=== PATIENT | male | born 1945 | race Caucasian/White ===

== ENCOUNTER 2023-10-19 06:59 | Inpatient (IN) | payer MEDICARE, OTHER ==
[~2023-10-19] VITALS: Ht 160 cm; Wt 73.0 kg
[2023-10-19 08:03] LABS: Urine Bacteria None Seen /hpf (None Seen); Urine WBC None Seen /hpf (0 - 3)
[2023-10-19 08:11] LABS: Basophils # (auto) 0 10 ^3/uL (0-0.2); Basophils % (auto) 0.5 % (0.0-2.0); Eosinophils # (auto) 0.2 10 ^3/uL (0-0.8); Eosinophils % (auto) 3.3 % (0.0-7.0); Hematocrit 40.4 % (41.0-53.0); Hemoglobin 13.9 g/dL (13.5-17.5); Lymphocytes # (auto) 1.2 10 ^3/uL (0.4-5.4); Lymphocytes % (auto) 22.3 % (10.0-50.0); Mean Corpuscular Hemoglobin 32.6 pg (28.0-32.0); Mean Corpuscular Hgb Conc. 34.4 g/dL (32.0-36.0); Mean Corpuscular Volume 94.9 fL (80.0-100.0); Monocytes # (auto) 0.5 10 ^3/uL (0-1.3); Monocytes % (auto) 10.1 % (0.0-12.0); Neutrophils # (auto) 3.5 10 ^3/uL (1.6-8.6); Neutrophils % (auto) 63.8 % (37.0-80.0); Nucleated Red Blood Cells % 0.1 %; Platelet Count (auto) 273 10^3/uL (140-450); Red Blood Cells 4.26 10^6/uL (4.5-5.90); Red Cell Distribution Width 13.5 % (11.8-14.3); White Blood Cell 5.4 10^3/uL (4.4-10.8)
[2023-10-19 08:15] LABS: Urine Blood Negative /uL (Negative); Urine Clarity Clear (Clear); Urine Color Yellow (Yellow); Urine Protein, UAD Negative (Negative); Urine Specific Gravity 1.012 (1.001-1.035); Urine Urobilinogen 6 mg/dL (Negative); Urine pH 7.5 (5.0-9.0)
[2023-10-19 08:33] LABS: Alanine Aminotransferase 299 U/L (7-40); Albumin 4.2 g/dL (3.2-4.8); Alkaline Phosphatase 178 U/L (46-116); Anion Gap 5 (5-15); Aspartate Aminotransferase 349 U/L (13-40); BUN/Creatinine Ratio 15.2 (10.0-20.0); Blood Urea Nitrogen 14 mg/dL (9-23); Calcium 9.5 mg/dL (8.7-10.4); Carbon Dioxide 29 mmol/L (20-30); Chloride 106 mmol/L (98-107); Glucose 105 mg/dL (74-106); Potassium 3.5 mmol/L (3.5-5.1); Sodium 140 mmol/L (136-145)
[2023-10-19 08:34] LABS: Bilirubin, Total 4.8 mg/dL (0.2-1.0); Total Protein 7.1 g/dL (5.7-8.2)
[2023-10-19 08:58] LABS: Lipase 31 U/L (12-53)
[2023-10-19 10:49] LABS: INR 1.1 (0.9-1.15); Partial Thromboplastin Time 28.6 SEC (24.5-34.5); Prothrombin Time 11.6 sec (9.3-11.8)
[2023-10-19] MEDS: PIPERACILLIN-TAZOB 3.375GM 100 ML IV ONE (11:49)
[2023-10-19] MEDS: SODIUM CHLORIDE 0.9% 500 ML IVB ONE (11:49)
[2023-10-19 12:13] VITALS: PULSE 78; RESP 14; O2SAT 96
[2023-10-19] MEDS ORDERED: DOCUSATE SOD 100 MG CAP PO PRN (14:00)
[2023-10-19] MEDS: SODIUM CHLOR 0.9% PF (SALINE LOCK) 10ML VIAL/SYR IV SCH (14:00)
[2023-10-19] MEDS ORDERED: ACETAMINOPHEN 325 MG TAB PO PRN (14:00)
[2023-10-19] MEDS ORDERED: HYDROcodone-ACET 5/325MG TAB PO PRN (14:00)
[2023-10-19] MEDS ORDERED: ONDANSETRON HCL 4 MG/2 ML VIAL IV PRN (14:00)
[2023-10-19] MEDS: LACTATED RINGER'S 1,000 ML IV ONE (14:15)
[2023-10-19] MEDS ORDERED: hydrALAZINE HCL 20 MG/ML VL IV PRN (14:30)
[2023-10-19] MEDS: PIPERACILLIN-TAZOB 3.375GM 100 ML IV SCH (18:15)
[2023-10-19] MEDS ORDERED: LOSA-535 PO (22:35)
[2023-10-19] MEDS ORDERED: ALEN70TA74 PO (22:35)
[2023-10-20 01:00] VITALS: BP 121/76; PULSE 61; RESP 20; TEMP 98.3; O2SAT 97
[2023-10-20 05:00] VITALS: BP 138/62; PULSE 72; RESP 20; TEMP 98.7; O2SAT 96
[2023-10-20 06:58] LABS: Basophils # (auto) 0.1 10 ^3/uL (0-0.2); Basophils % (auto) 0.9 % (0.0-2.0); Eosinophils # (auto) 0.3 10 ^3/uL (0-0.8); Eosinophils % (auto) 5.7 % (0.0-7.0); Hematocrit 41.1 % (41.0-53.0); Hemoglobin 14.1 g/dL (13.5-17.5); Lymphocytes # (auto) 1.8 10 ^3/uL (0.4-5.4); Lymphocytes % (auto) 31.9 % (10.0-50.0); Mean Corpuscular Hemoglobin 32.5 pg (28.0-32.0); Mean Corpuscular Hgb Conc. 34.2 g/dL (32.0-36.0); Mean Corpuscular Volume 94.8 fL (80.0-100.0); Monocytes # (auto) 0.5 10 ^3/uL (0-1.3); Monocytes % (auto) 9.3 % (0.0-12.0); Neutrophils % (auto) 52.2 % (37.0-80.0); Nucleated Red Blood Cells % 0.2 %; Platelet Count (auto) 270 10^3/uL (140-450); Red Blood Cells 4.33 10^6/uL (4.5-5.90); Red Cell Distribution Width 13.5 % (11.8-14.3); White Blood Cell 5.7 10^3/uL (4.4-10.8)
[2023-10-20 07:45] LABS: Alanine Aminotransferase 223 U/L (7-40); Alkaline Phosphatase 160 U/L (46-116); Anion Gap 8 (5-15); BUN/Creatinine Ratio 14.9 (10.0-20.0); Blood Urea Nitrogen 14 mg/dL (9-23); Calcium 9.3 mg/dL (8.7-10.4); Carbon Dioxide 25 mmol/L (20-30); Chloride 107 mmol/L (98-107); Glucose 90 mg/dL (74-106); Potassium 3.7 mmol/L (3.5-5.1); Sodium 140 mmol/L (136-145)
[2023-10-20 07:46] LABS: Albumin 4.1 g/dL (3.2-4.8)
[2023-10-20 07:47] LABS: Aspartate Aminotransferase 151 U/L (13-40); Bilirubin, Total 2.6 mg/dL (0.2-1.0); Total Protein 6.9 g/dL (5.7-8.2)
[2023-10-20 08:17] LABS: LDL Cholesterol 61 mg/dL (< 100); Triglycerides 72 mg/dL (< 150)
[2023-10-20 08:19] LABS: Cholesterol 127 mg/dL (< 200); HDL Cholesterol 51 mg/dL (40-59)
[2023-10-20 09:00] VITALS: BP 121/71; PULSE 89; RESP 18; TEMP 97.7; O2SAT 99
[2023-10-20 13:00] VITALS: BP 142/84; PULSE 104; RESP 20; TEMP 97.9; O2SAT 96
[2023-10-20] MEDS: LACTATED RINGER'S 1,000 ML IV SCH (16:20)
[2023-10-20] MEDS: metroNIDAZOLE 500MG/100ML 100 ML IV SCH (16:21)
[2023-10-20] MEDS: PANTOPRAZOLE 40 MG/10 ML VIAL INJ IV ONE (16:21)
[2023-10-20 17:00] VITALS: BP 125/66; PULSE 95; RESP 18; TEMP 98; O2SAT 95
[2023-10-20 21:00] VITALS: BP 135/79; PULSE 65; RESP 17; TEMP 98.1; O2SAT 95
[2023-10-21 01:00] VITALS: BP 102/63; PULSE 70; RESP 17; TEMP 98.1; O2SAT 94
[2023-10-21 05:00] VITALS: BP 132/64; PULSE 63; RESP 17; TEMP 98; O2SAT 98
[2023-10-21 06:03] LABS: Basophils # (auto) 0 10 ^3/uL (0-0.2); Basophils % (auto) 0.7 % (0.0-2.0); Eosinophils # (auto) 0.3 10 ^3/uL (0-0.8); Hematocrit 35.7 % (41.0-53.0); Hemoglobin 12.3 g/dL (13.5-17.5); Lymphocytes # (auto) 1.7 10 ^3/uL (0.4-5.4); Lymphocytes % (auto) 32.5 % (10.0-50.0); Mean Corpuscular Hemoglobin 32.4 pg (28.0-32.0); Mean Corpuscular Hgb Conc. 34.4 g/dL (32.0-36.0); Mean Corpuscular Volume 94.1 fL (80.0-100.0); Monocytes # (auto) 0.6 10 ^3/uL (0-1.3); Monocytes % (auto) 10.6 % (0.0-12.0); Neutrophils # (auto) 2.7 10 ^3/uL (1.6-8.6); Neutrophils % (auto) 51.2 % (37.0-80.0); Nucleated Red Blood Cells % 0.1 %; Platelet Count (auto) 235 10^3/uL (140-450); Red Cell Distribution Width 13.3 % (11.8-14.3); White Blood Cell 5.3 10^3/uL (4.4-10.8)
[2023-10-21 06:23] LABS: Alanine Aminotransferase 152 U/L (7-40); Albumin 3.7 g/dL (3.2-4.8); Alkaline Phosphatase 116 U/L (46-116); Anion Gap 9 (5-15); Aspartate Aminotransferase 91 U/L (13-40); BUN/Creatinine Ratio 14.8 (10.0-20.0); Blood Urea Nitrogen 12 mg/dL (9-23); Calcium 8.4 mg/dL (8.7-10.4); Carbon Dioxide 25 mmol/L (20-30); Chloride 109 mmol/L (98-107); Glucose 91 mg/dL (74-106); Potassium 3.6 mmol/L (3.5-5.1); Sodium 143 mmol/L (136-145)
[2023-10-21 06:24] LABS: Bilirubin, Total 1.6 mg/dL (0.2-1.0)
[2023-10-21 08:00] VITALS: BP 127/65; PULSE 64; RESP 16; TEMP 98.1; O2SAT 98
[2023-10-21] MEDS: PANTOPRAZOLE 40 MG/10 ML VIAL INJ IV SCH (10:01)
[2023-10-21] MEDS: cefTRIAXone 1GM/50ML D5W 50 ML IV SCH (10:01)
[2023-10-21 12:00] VITALS: BP 96/55; PULSE 65; RESP 16; TEMP 97.4; O2SAT 99
[2023-10-21 17:20] VITALS: BP 130/62; PULSE 65; RESP 16; TEMP 98; O2SAT 98
[2023-10-21 21:00] VITALS: BP 130/61; PULSE 72; RESP 18; TEMP 97.9; O2SAT 95
[2023-10-22] VITALS (7 sets, daily range): BP systolic 105–154; BP diastolic 54–71; PULSE 60–76; RESP 17–20; TEMP 97.5–98.7; O2SAT 94–97
[2023-10-22 06:59] LABS: Basophils # (auto) 0 10 ^3/uL (0-0.2); Basophils % (auto) 0.6 % (0.0-2.0); Eosinophils # (auto) 0.3 10 ^3/uL (0-0.8); Hematocrit 39.1 % (41.0-53.0); Lymphocytes % (auto) 36.6 % (10.0-50.0); Mean Corpuscular Hemoglobin 32.8 pg (28.0-32.0); Mean Corpuscular Hgb Conc. 33.1 g/dL (32.0-36.0); Monocytes # (auto) 0.5 10 ^3/uL (0-1.3); Monocytes % (auto) 9.7 % (0.0-12.0); Neutrophils # (auto) 2.6 10 ^3/uL (1.6-8.6); Neutrophils % (auto) 48.1 % (37.0-80.0); Nucleated Red Blood Cells % 0.1 %; Platelet Count (auto) 235 10^3/uL (140-450); Red Blood Cells 3.96 10^6/uL (4.5-5.90); Red Cell Distribution Width 13.8 % (11.8-14.3); White Blood Cell 5.5 10^3/uL (4.4-10.8)
[2023-10-22 07:04] LABS: Alanine Aminotransferase 142 U/L (7-40); Alkaline Phosphatase 111 U/L (46-116); Anion Gap 6 (5-15); BUN/Creatinine Ratio 13.1 (10.0-20.0); Blood Urea Nitrogen 11 mg/dL (9-23); Carbon Dioxide 26 mmol/L (20-30); Chloride 108 mmol/L (98-107); Glucose 95 mg/dL (74-106); Potassium 3.7 mmol/L (3.5-5.1); Sodium 140 mmol/L (136-145)
[2023-10-22 07:05] LABS: Albumin 3.8 g/dL (3.2-4.8); Aspartate Aminotransferase 85 U/L (13-40); Bilirubin, Total 1.1 mg/dL (0.2-1.0); Total Protein 6.4 g/dL (5.7-8.2)
[2023-10-22 19:59] LABS: Basophils # (auto) 0 10 ^3/uL (0-0.2); Basophils % (auto) 0.7 % (0.0-2.0); Eosinophils # (auto) 0.3 10 ^3/uL (0-0.8); Hematocrit 36.9 % (41.0-53.0); Hemoglobin 12.7 g/dL (13.5-17.5); Lymphocytes # (auto) 2.1 10 ^3/uL (0.4-5.4); Lymphocytes % (auto) 35.2 % (10.0-50.0); Mean Corpuscular Hemoglobin 32.3 pg (28.0-32.0); Mean Corpuscular Hgb Conc. 34.5 g/dL (32.0-36.0); Mean Corpuscular Volume 93.7 fL (80.0-100.0); Monocytes # (auto) 0.6 10 ^3/uL (0-1.3); Monocytes % (auto) 10.6 % (0.0-12.0); Neutrophils # (auto) 2.8 10 ^3/uL (1.6-8.6); Neutrophils % (auto) 48.5 % (37.0-80.0); Nucleated Red Blood Cells % 0.2 %; Platelet Count (auto) 241 10^3/uL (140-450); Red Blood Cells 3.94 10^6/uL (4.5-5.90); Red Cell Distribution Width 13.2 % (11.8-14.3); White Blood Cell 5.8 10^3/uL (4.4-10.8)
[2023-10-22 20:08] LABS: Chloride 109 mmol/L (98-107); Potassium 3.5 mmol/L (3.5-5.1); Sodium 140 mmol/L (136-145)
[2023-10-22 20:09] LABS: Anion Gap 5 (5-15); Carbon Dioxide 26 mmol/L (20-30)
[2023-10-22 20:12] LABS: INR 1.14 (0.9-1.15)
[2023-10-22 20:14] LABS: Glucose 136 mg/dL (74-106)
[2023-10-22 20:15] LABS: Blood Urea Nitrogen 12 mg/dL (9-23)
[2023-10-23] VITALS (8 sets, daily range): BP systolic 119–137; BP diastolic 58–78; PULSE 60–80; RESP 12–20; TEMP 97.6–98.3; O2SAT 93–98
[2023-10-23 07:08] LABS: Basophils # (auto) 0 10 ^3/uL (0-0.2); Basophils % (auto) 0.6 % (0.0-2.0); Eosinophils # (auto) 0.3 10 ^3/uL (0-0.8); Eosinophils % (auto) 5.6 % (0.0-7.0); Hematocrit 41.7 % (41.0-53.0); Hemoglobin 14.3 g/dL (13.5-17.5); Lymphocytes # (auto) 1.8 10 ^3/uL (0.4-5.4); Lymphocytes % (auto) 29.4 % (10.0-50.0); Mean Corpuscular Hemoglobin 32.2 pg (28.0-32.0); Mean Corpuscular Hgb Conc. 34.2 g/dL (32.0-36.0); Mean Corpuscular Volume 94.2 fL (80.0-100.0); Monocytes # (auto) 0.6 10 ^3/uL (0-1.3); Monocytes % (auto) 9.8 % (0.0-12.0); Neutrophils # (auto) 3.3 10 ^3/uL (1.6-8.6); Neutrophils % (auto) 54.6 % (37.0-80.0); Nucleated Red Blood Cells % 0.1 %; Platelet Count (auto) 284 10^3/uL (140-450); Red Blood Cells 4.43 10^6/uL (4.5-5.90); Red Cell Distribution Width 13.5 % (11.8-14.3)
[2023-10-23 07:25] LABS: Alanine Aminotransferase 144 U/L (7-40); Albumin 4.5 g/dL (3.2-4.8); Alkaline Phosphatase 114 U/L (46-116); Anion Gap 9 (5-15); Aspartate Aminotransferase 89 U/L (13-40); BUN/Creatinine Ratio 10.1 (10.0-20.0); Blood Urea Nitrogen 9 mg/dL (9-23); Calcium 9.2 mg/dL (8.7-10.4); Carbon Dioxide 25 mmol/L (20-30); Chloride 106 mmol/L (98-107); Glucose 114 mg/dL (74-106); Potassium 3.6 mmol/L (3.5-5.1); Sodium 140 mmol/L (136-145)
[2023-10-23 07:26] LABS: Bilirubin, Total 1.3 mg/dL (0.2-1.0); Total Protein 7.3 g/dL (5.7-8.2)
[2023-10-23] MEDS: ceFAZolin 1GM/50ML 50 ML IV ONE (11:43)
[2023-10-23] MEDS ORDERED: fentaNYL CITRATE 100 MCG/2 ML VL ONE (12:10)
[2023-10-23] MEDS ORDERED: MIDAZOLAM HCL 2MG/2ML 2ml VIAL (1mg/ml) ONE (12:10)
[2023-10-23] MEDS ORDERED: LIDOCAINE 2% (LOCAL ANESTH.) PF 5ml SDV ONE (12:11)
[2023-10-23] MEDS ORDERED: DexAMETHasone SOD PHOS 10MG/1ML VIAL INJ ONE (12:11)
[2023-10-23] MEDS ORDERED: PROPOFOL 10 MG/ML 20 ML IV ONE (12:11)
[2023-10-23] MEDS ORDERED: ONDANSETRON HCL 4 MG/2 ML VIAL ONE (12:11)
[2023-10-23] MEDS ORDERED: HYDROmorphone HCL 2 MG/ML VL/or syr IV PRN (12:15)
[2023-10-23] MEDS ORDERED: fentaNYL CITRATE 100 MCG/2 ML VL IV PRN (12:15)
[2023-10-23] MEDS: BUPIVACAINE HCL 0.25% P/F 10 ML VIAL ONE (12:15)
[2023-10-23] MEDS: ONDANSETRON HCL 4 MG/2 ML VIAL IV ONE (12:15)
[2023-10-23] MEDS ORDERED: SUGAMMADEX 200mg/2ml Vial (100MG/ML) IV ONE (12:41)
[2023-10-23] MEDS ORDERED: ePHEDrine SULFATE 50 MG/ML AMP ONE (12:41)
[2023-10-23] MEDS ORDERED: MEPERIDINE HCL (25 MG/ML) 1ML VIAL ONE (13:05)
[2023-10-23] MEDS ORDERED: ceFAZolin 1GM/50ML 50 ML IV SCH (14:00)
[2023-10-23] MEDS ORDERED: metroNIDAZOLE 500MG/100ML 100 ML IV SCH (14:00)
[2023-10-23] MEDS: HYDROmorphone HCL 2 MG/ML VL/or syr IV PRN (16:54)
[2023-10-24] VITALS (8 sets, daily range): BP systolic 105–137; BP diastolic 50–79; PULSE 67–122; RESP 14–20; TEMP 97.8–98.6; O2SAT 90–98
[2023-10-24 05:08] LABS: Basophils # (auto) 0 10 ^3/uL (0-0.2); Eosinophils # (auto) 0 10 ^3/uL (0-0.8); Hematocrit 38.7 % (41.0-53.0); Hemoglobin 13.6 g/dL (13.5-17.5); Lymphocytes # (auto) 0.7 10 ^3/uL (0.4-5.4); Lymphocytes % (auto) 6.7 % (10.0-50.0); Monocytes # (auto) 0.9 10 ^3/uL (0-1.3); Monocytes % (auto) 7.9 % (0.0-12.0); Neutrophils # (auto) 9.3 10 ^3/uL (1.6-8.6); Neutrophils % (auto) 85.4 % (37.0-80.0); Platelet Count (auto) 266 10^3/uL (140-450); Red Blood Cells 4.11 10^6/uL (4.5-5.90); Red Cell Distribution Width 13.6 % (11.8-14.3); White Blood Cell 10.8 10^3/uL (4.4-10.8)
[2023-10-24 05:28] LABS: Alanine Aminotransferase 128 U/L (7-40); Albumin 3.9 g/dL (3.2-4.8); Alkaline Phosphatase 96 U/L (46-116); Anion Gap 8 (5-15); Aspartate Aminotransferase 80 U/L (13-40); BUN/Creatinine Ratio 12.2 (10.0-20.0); Bilirubin, Total 0.7 mg/dL (0.2-1.0); Blood Urea Nitrogen 12 mg/dL (9-23); Calcium 8.9 mg/dL (8.7-10.4); Carbon Dioxide 25 mmol/L (20-30); Chloride 106 mmol/L (98-107); Glucose 167 mg/dL (74-106); Potassium 3.9 mmol/L (3.5-5.1); Sodium 139 mmol/L (136-145)
[2023-10-24 05:29] LABS: Total Protein 6.5 g/dL (5.7-8.2)
[2023-10-25 01:00] VITALS: BP 130/65; PULSE 112; RESP 20; TEMP 98.2; O2SAT 90
[2023-10-25 05:00] VITALS: BP 142/84; PULSE 115; RESP 20; TEMP 98.6; O2SAT 90
[2023-10-25 08:00] VITALS: RESP 17
[2023-10-25 08:56] VITALS: BP 148/92; PULSE 119; RESP 20; TEMP 97.7; O2SAT 95
[2023-10-25] MEDS ORDERED: DOCU-265 PO (13:16)
[2023-10-25] MEDS ORDERED: CEPH250C PO (13:16)
[2023-10-25 13:42] VITALS: BP 133/83; PULSE 112; RESP 20; TEMP 98.1; O2SAT 94
[2023-10-25 14:53] VITALS: BP 133/83; PULSE 112; RESP 19; TEMP 36.7; O2SAT 94
== END 2023-10-25 16:35 | disposition home health service (06) | DRG 419 ==
LOC: ER 06:59 → OVERFLOW 13:52 → EAST 13:52
PROVIDERS: ADMIT Internal Medicine; ATTEND Internal Medicine
PROC: 0FT44ZZ Resection of Gallbladder, Percutaneous Endoscopic Approach (ICD-10-PCS; principal; 2023-10-23 12:22)
DX: K80.12 Calculus of gallbladder with acute and chronic cholecystitis without obstruction (principal); I10 Essential (primary) hypertension; M81.0 Age-related osteoporosis without current pathological fracture; D64.9 Anemia, unspecified; E66.9 Obesity, unspecified; K76.0 Fatty (change of) liver, not elsewhere classified; Z79.899 Other long term (current) drug therapy; Z68.28 Body mass index [BMI] 28.0-28.9, adult
CPT/HCPCS: 36415; 71045; 74176; 74181; 76705; 80048; 80053; 80061; 81001; 82247; 82306; 82607; 83036; 83690; 85025; 85610; 85730; 86850; 86900; 86901; 93005; 96365; 96366; G0378; J1100; J2001; J2250; J2405; J2470; J2543; J2704; J3490